=== PATIENT | male | born 1955 ===

== ENCOUNTER 2021-11-21 18:00 | Inpatient (IN) ==
[2021-11-21] MEDS ORDERED: ONDANSETRON 4 MG/2 ML VIAL IV PRN (19:13)
[2021-11-21] MEDS ORDERED: ACETAMINOPHEN 325 MG TABLET PO PRN (19:13)
[2021-11-21] MEDS: PIPERACILLIN/TAZOBACTAM 3,375 MG in SODIUM CHLORIDE 0.9% 100 ML IV SCH (20:59)
[2021-11-21] MEDS: DEXTROSE 5% NACL 0.45% 1,000 ML IV SCH (23:19)
[2021-11-22] MEDS: PIPERACILLIN/TAZOBACTAM 3,375 MG in SODIUM CHLORIDE 0.9% 100 ML IV SCH ×3 (05:45→21:47)
[2021-11-22] MEDS ORDERED: KETOROLAC 30 MG/1 ML VIAL IV ONE (08:53)
[2021-11-22] MEDS ORDERED: GLUCAGON 1 MG VIAL IM PRN (08:54)
[2021-11-22] MEDS: PANTOPRAZOLE 40 MG VIAL IV SCH (08:57)
[2021-11-22] MEDS ORDERED: DEXTROSE 10% 250 ML BAG IV PRN (09:03)
[2021-11-22] MEDS: KETOROLAC 15 MG/1 ML VIAL IV SCH ×3 (10:20→21:46)
[2021-11-22] MEDS ORDERED: DEXTROSE 50% 25 GM/50 ML VIAL IV PRN (11:08)
[2021-11-22] MEDS: LACTULOSE 20 GM/30 ML UDCUP PO PRN (12:07)
[2021-11-22] MEDS: LACTATED RINGERS 1,000 ML IV SCH (12:08)
[2021-11-22] MEDS: DOCUSATE SODIUM 100 MG CAPSULE PO SCH ×2 (12:08→21:44)
[2021-11-22] MEDS: lisinopriL 20 MG TABLET PO SCH (12:08)
[2021-11-22] MEDS: DEXTROSE 5% NACL 0.45% 1,000 ML IV SCH (12:54)
[2021-11-22] MEDS: INSULIN LISPRO 100 UNIT/ML SUBCUT SCH (17:24)
[2021-11-22] MEDS: ATORVASTATIN 40 MG TABLET PO SCH (21:44)
[2021-11-23] MEDS: KETOROLAC 15 MG/1 ML VIAL IV SCH ×4 (03:01→21:35)
[2021-11-23 04:27] LABS: Basophils % 0.3 % (0.0-0.8); Eosinophils % 0.6 % (0.00-10.9); Hematocrit 35.3 VOL% (42.0-52.0); Hemoglobin 12.5 GM/DL (14.0-18.0); Immature Granulocytes % 0.3 %; Immature Granulocytes Absolute 0.02 #; Lymphocytes % 14.5 % (21.2-54.2); Mean Corpuscular HGB Conc 35.4 GM/DL (32-36); Mean Corpuscular Volume 90.3 FL (87-102); Mean Platelet Volume 9.9 FL (9.6-12.0); Monocytes # 0.5 10*3/uL (0.11-0.8); Monocytes % 7.6 % (1.7-12.7); Neutrophils % 76.7 % (38.7-73.9); Platelet Count 142 T/CUMM (130-400); Red Blood Count 3.91 MC/CUMM (3.8-5.5); Red Cell Distribution Width 12.2 % (9.3-17.3); White Blood Count 6.9 T/CUMM (4-12)
[2021-11-23 04:56] LABS: Bilirubin,Total 1.8 MG/DL (0.20-1.00); Calcium 8.9 MG/DL (8.5-10.1); Total Protein 6.2 G/DL (6.4-8.2)
[2021-11-23] MEDS: PIPERACILLIN/TAZOBACTAM 3,375 MG in SODIUM CHLORIDE 0.9% 100 ML IV SCH ×3 (05:08→21:35)
[2021-11-23] MEDS: INSULIN LISPRO 100 UNIT/ML SUBCUT SCH ×2 (08:09→16:42)
[2021-11-23] MEDS: CHLORTHALIDONE 25 MG TABLET PO SCH (09:02)
[2021-11-23] MEDS: PANTOPRAZOLE 40 MG VIAL IV SCH (09:02)
[2021-11-23] MEDS: lisinopriL 20 MG TABLET PO SCH (09:02)
[2021-11-23] MEDS: LACTULOSE 20 GM/30 ML UDCUP PO PRN (09:03)
[2021-11-23] MEDS: DOCUSATE SODIUM 100 MG CAPSULE PO SCH ×2 (09:03→21:35)
[2021-11-23] MEDS: ASPIRIN EC 81 MG TABLET PO SCH (09:03)
[2021-11-23 10:40] LABS: Folate 10.75 NG/ML (5.38-24.0)
[2021-11-23 10:43] LABS: % Iron Saturation 26.2 % (18-50); Risk Ratio 1.95; Thyroid Stimulating Hormone 0.597 uIU/ml (0.358-3.74); VLDL Cholesterol 11.2 MG/DL
[2021-11-23] MEDS: LACTATED RINGERS 1,000 ML IV SCH ×2 (17:49)
[2021-11-23] MEDS: ATORVASTATIN 40 MG TABLET PO SCH (21:35)
[2021-11-24] MEDS: KETOROLAC 15 MG/1 ML VIAL IV SCH ×4 (02:41→20:50)
[2021-11-24] MEDS: LACTATED RINGERS 1,000 ML IV SCH ×2 (04:39→14:29)
[2021-11-24] MEDS: PIPERACILLIN/TAZOBACTAM 3,375 MG in SODIUM CHLORIDE 0.9% 100 ML IV SCH ×3 (06:12→20:50)
[2021-11-24] MEDS: INSULIN LISPRO 100 UNIT/ML SUBCUT SCH ×2 (07:23→17:29)
[2021-11-24] MEDS: lisinopriL 20 MG TABLET PO SCH (08:40)
[2021-11-24] MEDS: ASPIRIN EC 81 MG TABLET PO SCH (08:40)
[2021-11-24] MEDS: PANTOPRAZOLE 40 MG VIAL IV SCH (08:40)
[2021-11-24] MEDS: CHLORTHALIDONE 25 MG TABLET PO SCH (08:40)
[2021-11-24] MEDS: DOCUSATE SODIUM 100 MG CAPSULE PO SCH ×2 (08:41→20:48)
[2021-11-24 11:17] LABS: Mucus,Urine Occasional /LPF (Occasional); Squamous Epithelial Cell,Urine Occasional /HPF (0-10)
[2021-11-24 11:18] LABS: Bilirubin,Urine Negative (Negative); Blood, Urine Small mg/dL (Negative); Glucose,Urine (UA) 100 mg/dL (Negative); Ketones,Urine Negative (Negative); Nitrite,Urine Negative (Negative); Protein,Urine Negative (Negative); Urine Appearance Clear (Clear); Urine Color Light Yellow (Yellow); Urine pH 6.5 (4.5-8.0)
[2021-11-24] MEDS: ATORVASTATIN 40 MG TABLET PO SCH (20:49)
[2021-11-25] MEDS: KETOROLAC 15 MG/1 ML VIAL IV SCH ×4 (02:54→20:29)
[2021-11-25] MEDS: LACTATED RINGERS 1,000 ML IV SCH ×2 (03:09→20:29)
[2021-11-25] MEDS: PIPERACILLIN/TAZOBACTAM 3,375 MG in SODIUM CHLORIDE 0.9% 100 ML IV SCH ×3 (04:11→20:28)
[2021-11-25 05:34] LABS: Basophils % 0.2 % (0.0-0.8); Eosinophils # 0.1 10*3/uL (0.0-0.87); Eosinophils % 1.8 % (0.00-10.9); Hematocrit 34.3 VOL% (42.0-52.0); Hemoglobin 12.3 GM/DL (14.0-18.0); Immature Granulocytes % 0.4 %; Immature Granulocytes Absolute 0.02 #; Lymphocytes # 1.3 10*3/uL (1.4-4.0); Mean Corpuscular HGB Conc 35.9 GM/DL (32-36); Mean Corpuscular Volume 89.3 FL (87-102); Mean Platelet Volume 9.9 FL (9.6-12.0); Monocytes # 0.5 10*3/uL (0.11-0.8); Monocytes % 10.8 % (1.7-12.7); Neutrophils % 60.8 % (38.7-73.9); Platelet Count 149 T/CUMM (130-400); Red Blood Count 3.84 MC/CUMM (3.8-5.5); Red Cell Distribution Width 12.2 % (9.3-17.3)
[2021-11-25 05:57] LABS: Calcium 8.9 MG/DL (8.5-10.1); Potassium 3.8 MMOL/L (3.5-5.1)
[2021-11-25] MEDS: INSULIN LISPRO 100 UNIT/ML SUBCUT SCH ×2 (08:18→17:15)
[2021-11-25] MEDS: DOCUSATE SODIUM 100 MG CAPSULE PO SCH ×2 (08:30→20:28)
[2021-11-25] MEDS: lisinopriL 20 MG TABLET PO SCH ×2 (08:31→20:28)
[2021-11-25] MEDS: CHLORTHALIDONE 25 MG TABLET PO SCH (08:31)
[2021-11-25] MEDS: FERROUS SULFATE 325 MG TABLET PO SCH (08:31)
[2021-11-25] MEDS: ASPIRIN EC 81 MG TABLET PO SCH (08:31)
[2021-11-25] MEDS: CHOLECALCIFEROL 1,000 UNIT TABLET PO SCH (08:31)
[2021-11-25] MEDS: PANTOPRAZOLE 40 MG VIAL IV SCH (08:32)
[2021-11-25] MEDS: TAMSULOSIN 0.4 MG CAPSULE PO SCH ×2 (10:51→20:27)
[2021-11-25] MEDS: DUTASTERIDE 0.5 MG CAPSULE PO SCH (10:51)
[2021-11-25] MEDS: ATORVASTATIN 40 MG TABLET PO SCH (20:28)
[2021-11-26] MEDS: KETOROLAC 15 MG/1 ML VIAL IV SCH (02:37)
[2021-11-26 04:14] LABS: Basophils % 0.4 % (0.0-0.8); Eosinophils # 0.1 10*3/uL (0.0-0.87); Eosinophils % 1.8 % (0.00-10.9); Hematocrit 35.1 VOL% (42.0-52.0); Hemoglobin 12.5 GM/DL (14.0-18.0); Immature Granulocytes % 0.2 %; Immature Granulocytes Absolute 0.01 #; Lymphocytes # 1.4 10*3/uL (1.4-4.0); Lymphocytes % 27.3 % (21.2-54.2); Mean Corpuscular HGB Conc 35.6 GM/DL (32-36); Mean Corpuscular Volume 89.1 FL (87-102); Mean Platelet Volume 10.2 FL (9.6-12.0); Monocytes # 0.5 10*3/uL (0.11-0.8); Neutrophils % 60.3 % (38.7-73.9); Platelet Count 159 T/CUMM (130-400); Red Blood Count 3.94 MC/CUMM (3.8-5.5)
[2021-11-26] MEDS: PIPERACILLIN/TAZOBACTAM 3,375 MG in SODIUM CHLORIDE 0.9% 100 ML IV SCH ×3 (04:16→21:29)
[2021-11-26 04:34] LABS: Calcium 8.8 MG/DL (8.5-10.1); Potassium 3.6 MMOL/L (3.5-5.1)
[2021-11-26] MEDS ORDERED: propofoL 200 MG/20 ML VIAL IV ONE (05:57)
[2021-11-26] MEDS ORDERED: LIDOCAINE 2% 5 ML VIAL ONE (05:57)
[2021-11-26] MEDS ORDERED: ONDANSETRON 4 MG/2 ML VIAL ONE (05:57)
[2021-11-26] MEDS ORDERED: ROCURONIUM 50 MG/5 ML VIAL IV ONE (05:57)
[2021-11-26] MEDS ORDERED: MIDAZOLAM 2 MG/2 ML VIAL ONE (05:59)
[2021-11-26] MEDS ORDERED: fentaNYL 100 MCG/2 ML VIAL ONE (06:00)
[2021-11-26] MEDS ORDERED: INDOCYANINE GREEN 25 MG VIAL IV ONE (06:30)
[2021-11-26] MEDS ORDERED: LIDOCAINE 1%/EPI INJ 20 ML VIAL ONE (06:44)
[2021-11-26] MEDS ORDERED: BUPIVACAINE MPF 0.25% 10 ML VIAL ONE (06:44)
[2021-11-26] MEDS: INSULIN LISPRO 100 UNIT/ML SUBCUT SCH ×2 (07:11→16:43)
[2021-11-26] MEDS ORDERED: ACETAMINOPHEN INJ 1,000 MG/100 ML VIAL IV ONE (07:24)
[2021-11-26] MEDS ORDERED: PHENYLEPHRINE 1 MG/10 ML SYRINGE IV ONE (07:41)
[2021-11-26] MEDS ORDERED: KETOROLAC 30 MG/1 ML VIAL ONE (07:57)
[2021-11-26] MEDS ORDERED: SEVOFLURANE 1 UNIT/15 MINUTE INH ONE ×4 (08:00→08:16)
[2021-11-26] MEDS ORDERED: GLYCOPYRROLATE 0.4 MG/2 ML VIAL ONE (08:01)
[2021-11-26] MEDS ORDERED: NEOSTIGMINE 10 MG/10 ML VIAL ONE (08:01)
[2021-11-26] MEDS ORDERED: SUGAMMADEX 200 MG/2 ML VIAL IV ONE (08:05)
[2021-11-26] MEDS ORDERED: ePHEDrine 50 MG/ML VIAL ONE (08:08)
[2021-11-26] MEDS ORDERED: MEPERIDINE 25 MG/1 ML VIAL IV PRN (08:48)
[2021-11-26] MEDS ORDERED: MEPERIDINE 25 MG/1 ML VIAL ONE (08:50)
[2021-11-26] MEDS ORDERED: DEXTROSE 50% 25 GM/50 ML VIAL IV PRN (09:18)
[2021-11-26] MEDS ORDERED: HYDROmorphone 1 MG/1 ML SYRINGE IV PRN (09:18)
[2021-11-26] MEDS: CHOLECALCIFEROL 1,000 UNIT TABLET PO SCH (10:38)
[2021-11-26] MEDS: lisinopriL 20 MG TABLET PO SCH ×2 (10:39→20:30)
[2021-11-26] MEDS: FERROUS SULFATE 325 MG TABLET PO SCH (10:39)
[2021-11-26] MEDS: ASPIRIN EC 81 MG TABLET PO SCH (10:39)
[2021-11-26] MEDS: DOCUSATE SODIUM 100 MG CAPSULE PO SCH ×2 (10:39→20:30)
[2021-11-26] MEDS: DUTASTERIDE 0.5 MG CAPSULE PO SCH (10:39)
[2021-11-26] MEDS: CHLORTHALIDONE 25 MG TABLET PO SCH (10:39)
[2021-11-26] MEDS: TAMSULOSIN 0.4 MG CAPSULE PO SCH ×2 (10:39→20:30)
[2021-11-26] MEDS: PANTOPRAZOLE 40 MG VIAL IV SCH (10:41)
[2021-11-26] MEDS: LACTATED RINGERS 1,000 ML IV SCH (11:57)
[2021-11-26] MEDS: ATORVASTATIN 40 MG TABLET PO SCH (20:30)
[2021-11-27] MEDS: LACTATED RINGERS 1,000 ML IV SCH (01:45)
[2021-11-27] MEDS: PIPERACILLIN/TAZOBACTAM 3,375 MG in SODIUM CHLORIDE 0.9% 100 ML IV SCH (04:35)
[2021-11-27 05:12] LABS: Basophils % 0.3 % (0.0-0.8); Eosinophils % 0.3 % (0.00-10.9); Hematocrit 35.4 VOL% (42.0-52.0); Hemoglobin 12.5 GM/DL (14.0-18.0); Immature Granulocytes % 0.4 %; Immature Granulocytes Absolute 0.03 #; Lymphocytes # 1.1 10*3/uL (1.4-4.0); Mean Corpuscular HGB Conc 35.3 GM/DL (32-36); Mean Corpuscular Volume 89.4 FL (87-102); Mean Platelet Volume 10.2 FL (9.6-12.0); Monocytes # 0.6 10*3/uL (0.11-0.8); Monocytes % 8.1 % (1.7-12.7); Neutrophils % 76.9 % (38.7-73.9); Platelet Count 154 T/CUMM (130-400); Red Blood Count 3.96 MC/CUMM (3.8-5.5); Red Cell Distribution Width 12.1 % (9.3-17.3); White Blood Count 7.6 T/CUMM (4-12)
[2021-11-27 05:28] LABS: Calcium 9.2 MG/DL (8.5-10.1); Osmolality,Calculated 274.1 MOS/KG (273-304); Potassium 3.4 MMOL/L (3.5-5.1)
[2021-11-27 07:39] VITALS: BP 117/72
[2021-11-27] MEDS: INSULIN LISPRO 100 UNIT/ML SUBCUT SCH (08:53)
[2021-11-27] MEDS: CHOLECALCIFEROL 1,000 UNIT TABLET PO SCH (08:56)
[2021-11-27] MEDS: TAMSULOSIN 0.4 MG CAPSULE PO SCH (08:56)
[2021-11-27] MEDS: DUTASTERIDE 0.5 MG CAPSULE PO SCH (08:56)
[2021-11-27] MEDS: CHLORTHALIDONE 25 MG TABLET PO SCH (08:57)
[2021-11-27] MEDS: lisinopriL 20 MG TABLET PO SCH (08:57)
[2021-11-27] MEDS: FERROUS SULFATE 325 MG TABLET PO SCH (08:57)
[2021-11-27] MEDS: PANTOPRAZOLE 40 MG VIAL IV SCH (08:58)
[2021-11-27] MEDS: ASPIRIN EC 81 MG TABLET PO SCH (08:58)
[2021-11-27] MEDS: DOCUSATE SODIUM 100 MG CAPSULE PO SCH (08:58)
[2021-11-27] MEDS ORDERED: POTASSIUM CHLORIDE 20 MEQ TABLET PO ONE (12:00)
== END 2021-11-27 12:33 | disposition home or self-care (01) | DRG 418 ==
LOC: EDUNIT# → EDBD → N.ED 18:00 → N.EDINP 19:13 → N.3E 21:27
PROVIDERS: ADMIT Surgery; ATTEND Surgery